=== PATIENT | female | born 1975 | race Caucasian/White ===

== ENCOUNTER 2016-06-16 10:37 | Emergency (ER) | payer OTHER ==
[2016-06-16 12:17] VITALS: BP 157/76
[2016-06-16 12:27] LABS: URINE MICROSCOPIC NEEDED? NO; URINE SOURCE CLEAN CATCH
--- NOTE | 2016-06-16 12:31 | PROVIDER DOCUMENTATION ---
HPI-General Adult - General Chief Complaint: Diarrhea Stated Complaint: DIZZINESS/NAUSEA Time Seen by Provider: 06/16/16 12:16 Source: patient Allergies/Adverse Reactions: Patient Allergies Allergy/AdvReac Type Severity Reaction Status Date / Time No Known Allergies Allergy Verified 10/12/14 15:15 Home Medications: Home Medication List Medication Instructions Recorded Confirmed Last Taken Type Butalbital/APAP/Caffeine [Fioricet] 1 each PO Q4H PRN PRN #20 tablet 10/12/14 Unknown Rx Citalopram Hydrobromide [Celexa] 10 mg PO DAILY 10/12/14 10/12/14 10/12/14 History 10MG Cyclobenzaprine [Flexeril] 10 mg PO Q6H PRN PRN #20 tablet 10/12/14 Unknown Rx Hydroxyzine Pamoate [Vistaril] 25 mg PO BID PRN PRN #20 capsule 10/12/14 Unknown Rx Ondansetron [Zofran] 4 mg PO Q6H PRN PRN #20 tablet 10/12/14 Unknown Rx - History of Present Illness -Gen Adult Nature of Presenting Problems: 40 yo female presents to ER with c/o diarrhea, cold sweats, and nausea onset this am. She did not eat since 2330 last night and this episode happened around 8am. She has since eaten a ham biscuit since. Location of Pain/Injury: reports: none Pain Radiation: reports: no radiation Quality of Pain: reports: none Onset/Duration: reports: 1-3 hours ago Timing: reports: improving Context/Activities at Onset: reports: none Modifying Factors: improves with: nothing Associated Symptoms: reports: diaphoresis, diarrhea, nausea Similar Symptoms Previously?: No Recently seen or treated by another doctor?: No Review of Systems - Adult - REVIEW OF SYSTEMS - ADULT Constitutional: reports: see HPI, other (cold sweats) Eyes: reports: no symptoms reported Ears, Nose, Mouth & Throat: reports: no symptoms reported Cardiovascular: reports: no symptoms reported Respiratory: reports: no symptoms reported Gastrointestinal: reports: see HPI, diarrhea, nausea Genitourinary: reports: no symptoms reported Musculoskeletal: reports: no symptoms reported Integumentary: reports: no symptoms reported Neurological: reports: no symptoms reported Psychiatric: reports: no symptoms reported Endocrine: reports: no symptoms reported Hematologic/Lymphatic: reports: no symptoms reported Allergic/Immunologic: reports: no symptoms reported All Other Systems: Reviewed and Negative Past History - Adult - PAST MEDICAL HISTORY-ADULT Review of Records: reports: Old Records Reviewed, Nursing Assessment Review, Medications Reviewed, Social history reviewed & non-contributory. Major Childhood Illnesses: reports: denies history Cardiovascular: reports: denies history Respiratory: reports: denies history Gastrointestinal: reports: denies history Obstetrical/Gynecological: reports: denies history Genitourinary: reports: denies history Musculoskeletal: reports: denies history Neurological: reports: headaches/migraines Psychiatric: reports: depression Endocrine/Immune: reports: denies history Other Conditions: reports: denies history - PRIOR SURGERIES/PROCEDURES Surgical/Procedure History: reports: back/neck - IMMUNIZATION STATUS Childhood Immunizations: See Nurse Assessment Flu Vaccine: See Nurse Assessment - FAMILY HISTORY Family History: reviewed, not pertinent - SOCIAL HISTORY Smoking: denies, non-smoker Substance Use: none/never, denies Alcohol Use Frequency: never Living Situation: family Physical Exam-General - PHYSICAL EXAM-ADULT Initial Vital Signs Reviewed: Yes - CONSTITUTIONAL General Appearance: appears well, alert, no apparent distress - EYES Eyes: PERRL/EOMI, pink conjunctivae - HEAD, EARS, NOSE, MOUTH & THROAT HENMT: normocephalic/atraumatic, moist mucous membranes, normal ENT inspection - RESPIRATORY Respiratory: lungs clear, normal breath sounds, no respiratory distress - CARDIOVASCULAR Cardiovascular: normal peripheral pulses - GASTROINTESTINAL (ABDOMEN) Abdominal Exam: normal bowel sounds, non tender, soft - MUSCULOSKELETAL Back Exam: normal inspection, no CVA tenderness, no vertebral tenderness Extremity: non-tender, normal gait, normal inspection, pedal edema (mild) - SKIN Integumentary: normal color, normal turgor, warm/dry - NEUROLOGIC Neurologic: grossly normal - PSYCHIATRIC Psych/Mental Status: normal mood/affect, normal thought content, normal thought process, oriented x 3 Progress - PLAN OF CARE/RESULTS Progress/Plan/Lab Results: 1330-Discussed results/dx/discharge/follow up and importance of eating regularly ; she verbalized understanding. Laboratory Tests 06/16/16 06/16/16 06/16/16 12:18 12:43 12:43 WBC 7.85 RBC 3.96 L Hgb 10.9 L Hct 33.6 L MCV 84.8 MCH 27.5 MCHC 32.4 L RDW Std Deviation 13.9 Plt Count 263 MPV 10.0 Immature Gran % (Auto) 0.4 Neut % (Auto) 69.1 Lymph % (Auto) 22.3 [place] % (Auto) 5.5 Eos % (Auto) 2.2 Baso % (Auto) 0.5 Immature Gran # (Auto) 0.03 Neut # (Auto) 5.43 Lymph # (Auto) 1.75 [place] # (Auto) 0.43 Eos # (Auto) 0.17 Baso # (Auto) 0.04 Sodium 136 Potassium 3.6 Chloride 104 Carbon Dioxide 24 L Anion Gap 8 BUN 8 Creatinine 0.6 Estimated GFR/1.73 m2 > 60 BUN/Creatinine Ratio 13 Glucose 120 H Calculated Osmolality 271 Calcium 8.9 Total Bilirubin 0.30 AST 17 ALT 16 Alkaline Phosphatase 145 H Total Protein 7.0 Albumin 3.9 Globulin 3.0 Albumin/Globulin Ratio 1.0 Urine Source CLEAN CATCH Urine Color YELLOW Urine Clarity CLEAR Urine pH 5.0 Ur Specific [place] 1.020 Urine Protein NEGATIVE Urine Ketones NEGATIVE Urine Blood NEGATIVE Urine Nitrite NEGATIVE Urine Bilirubin NEGATIVE Urine Urobilinogen NORMAL Urine WBC NEGATIVE Urine Glucose NEGATIVE Orders Category Date Time Status CBC WITH ELECTRONIC DIFF [HEME] Stat Lab 06/16/16 12:43 Completed COMPREHENSIVE METABOLIC PANEL [CHEM] Stat Lab 06/16/16 12:[address] [URINALYSIS] Stat Lab 06/16/16 12:18 Completed Vital Signs - 24 hr 06/16/16 06/16/16 10:44 12:13 Temperature 97.5 F L Pulse Rate 75 Pulse Rate [ 76 Sitting] Pulse Rate [ 75 Standing] Pulse Rate [ 66 Supine] Respiratory 18 Rate Blood Pressure 174/48 Blood Pressure 175/95 [Sitting] Blood Pressure 160/88 [Standing] Blood Pressure 157/76 [Supine] O2 Sat by Pulse 100 Oximetry - REASSESSMENT Reassessment #1 Time Reassessed: 13:40 Status: improving Departure - Departure Time of Disposition Order: 13:43 DIAGNOSIS: Hypoglycemia, Nausea Diarrhea Qualifiers: Diarrhea type: unspecified type Qualified Code(s): R19.7 - Diarrhea, unspecified Disposition: HOME 01 Certified Medical Emergency: Emergent Condition: Good Additional Instructions: Follow up with primary care doctor. Eat every 4 hours; small meals and snacks. Stay well hydrated. Change caffeine sweet tea to caffeine-free tea. ED Follow Up Instructions: You have been treated by a care provider in the Emergency Department. These instructions are being provided to you so you can have an understanding of how to care for yourself upon discharge. Upon discharge from the Emergency Department, you are responsible for making arrangements for follow-up care by a physician of your choice. Take all prescribed medications as directed. Return to the Emergency Department immediately for any new or worsening symptoms. You may call the Physician Referral phone number at [phone] to obtain a list of Physicians who are taking new patients. Referrals: Guido Cobb [Primary Care Provider] - Forms: Return to School/Parent Work Instructions: Nausea, Adult, Hypoglycemia, [id number] Attestation - Physician/ [place] Attestation Patient care was provided by Advanced Practice Provider:: Yes Advanced Practice Provider:: Leah Enriquez Advanced Practice Provider documentation review:: The Mid-level provider documentation, treatment plan and medical decision making was reviewed by the physician who agrees with all treatment and medical decision making by the MLP.
[2016-06-16 12:40] LABS: BILIRUBIN URINE NEGATIVE (NEGATIVE); BLOOD URINE NEGATIVE (NEGATIVE); CLARITY CLEAR (CLEAR); COLOR YELLOW; GLUCOSE URINE NEGATIVE (NEGATIVE); LEUKOCYTES URINE NEGATIVE (NEGATIVE); NITRITE URINE NEGATIVE (NEGATIVE); PROTEIN URINE NEGATIVE (NEGATIVE); UROBILINOGEN URINE NORMAL
[2016-06-16 12:48] LABS: MANUAL DIFF NEEDED? NO
[2016-06-16 12:49] LABS: BASO% 0.5 % (0.0-0.8); EOS# 0.17 X1000 (0.0-0.7); EOS% 2.2 % (0.0-10.0); HEMATOCRIT 33.6 % (37.0-47.0); HEMOGLOBIN 10.9 g/dL (12.0-16.0); IMM GRAN# 0.03 X1000 (0.0-0.04); IMM GRAN% 0.4 % (0.0-0.5); LYMPH# 1.75 X1000 (1.2-3.4); LYMPH% 22.3 % (20.5-51.1); MCH 27.5 PG (27-31); MCHC 32.4 g/dL (33-37); MCV 84.8 FL (81-99); MONO# 0.43 X1000 (0.11-0.59); MONO% 5.5 % (1.7-9.3); NEUT% 69.1 % (42.2-75.2); PLT 263 X1000 (130-400); RBC 3.96 XMIL (4.2-5.4)
[2016-06-16 13:11] LABS: AGAP 8; ALBUMIN 3.9 g/dL (3.5-5.0); ALKALINE PHOSPHATASE 145 U/L (32-104); BUN 8 mg/dL (8-22); CALCIUM 8.9 mg/dL (8.8-10.2); CHLORIDE 104 mmol/L (98-107); COSMO 271; GOT 17 U/L (10-30); GPT 16 U/L (10-36); POTASSIUM 3.6 mmol/L (3.5-5.1); SODIUM 136 mmol/L (136-145); TCO2 24 mmol/L (25-35)
== END 2016-06-16 13:55 | disposition home or self-care (01) ==
LOC: P.ED 10:37
DX: E16.2 Hypoglycemia, unspecified (principal); R19.7 Diarrhea, unspecified; R11.0 Nausea; R42 Dizziness and giddiness; R61 Generalized hyperhidrosis; R60.0 Localized edema; F32.9 Major depressive disorder, single episode, unspecified; Z79.899 Other long term (current) drug therapy
CPT/HCPCS: 36415; 80053; 85025; 99283